=== PATIENT | female | born 1980 | race Caucasian/White ===

== ENCOUNTER 2018-10-16 22:28 | Emergency (ER) | payer BC ==
[~2018-10-16] VITALS: Ht 162.6 cm; Wt 109.1 kg
[~2018-10-16 22:28] MED LIST: LORTAB 5/500 501 TAB PO; NO HOME MEDICATIONS; PENICILLIN V500 MG PO
[2018-10-16 22:33] VITALS: TEMP 97.9
[2018-10-17] MEDS ORDERED: ZOFRAN ODT4 MG PO (01:03)
[2018-10-17 01:06] VITALS: BP 108/54; PULSE 84
== END 2018-10-17 01:15 | disposition home or self-care (01) ==
LOC: COL.ER 22:28
DX: T18.128A Food in esophagus causing other injury, initial encounter (principal); Z87.19 Personal history of other diseases of the digestive system; Z87.891 Personal history of nicotine dependence
CPT/HCPCS: J2704; J7030

== ENCOUNTER 2019-07-01 19:39 | Emergency (ER) | payer BC ==
[~2019-07-01] VITALS: Ht 162.6 cm; Wt 122.7 kg
[~2019-07-01 19:39] MED LIST changes: +ZOFRAN ODT4 MG PO
[2019-07-01 19:45] VITALS: BP 163/81; TEMP 97.7
[2019-07-01] MEDS ORDERED: NORCO 325 MG-51 TAB PO (20:07)
[2019-07-01] MEDS ORDERED: AMOXICILLIN 8751 TAB PO (20:07)
[2019-07-01 20:26] VITALS: PULSE 84
[2019-07-02] MEDS ORDERED: CLEOCIN HCL300 MG PO (21:53)
== END 2019-07-01 20:22 | disposition home or self-care (01) ==
LOC: COL.ER 19:39
DX: K02.9 Dental caries, unspecified (principal); K03.81 Cracked tooth; Z87.891 Personal history of nicotine dependence; Z88.1 Allergy status to other antibiotic agents

== ENCOUNTER 2019-07-02 20:42 | Emergency (ER) | payer BC ==
[~2019-07-02] VITALS: Ht 162.6 cm; Wt 118.2 kg
[~2019-07-02 20:42] MED LIST changes: +AMOXICILLIN 8751 TAB PO; +NORCO 325 MG-51 TAB PO
[2019-07-02 20:56] VITALS: BP 138/67; TEMP 98.4
[2019-07-02] MEDS ORDERED: CLEOCIN HCL300 MG PO (21:53)
[2019-07-02 22:07] VITALS: PULSE 89
== END 2019-07-02 22:08 | disposition home or self-care (01) ==
LOC: COL.ER 20:42
DX: K02.9 Dental caries, unspecified (principal); K04.7 Periapical abscess without sinus
CPT/HCPCS: J1170

== ENCOUNTER 2020-02-03 18:38 | Emergency (ER) | payer BC ==
[~2020-02-03] VITALS: Ht 162.6 cm; Wt 104.5 kg
[~2020-02-03 18:38] MED LIST changes: +CLEOCIN HCL300 MG PO; +FLOVENT 220MCG7.9 GM PO; +PRILOSEC 20MG20 MG PO
[2020-02-03 19:12] LABS: BASO # 0.1 (0.0-0.2); EOS # 0.6 (0.0-0.7); EOS % 6.2 % (0-4.0); GRAN # 5.1 (1.4-6.5); GRAN % 57.7 % (42.2-75.2); HEMATOCRIT 47.3 % (37.0-47.0); HEMOGLOBIN 15.4 g/dl (12.5-16.0); LYMPH # 2.4 (1.2-3.4); LYMPH % 27.4 % (20.0-51.0); MEAN CELL VOLUME 93 fl (80.0-100.0); MEAN CORPUSCULAR HEMOGLOBIN 30 pg (27.0-31.0); MEAN CORPUSCULAR HGB CONC 33 g/dl (33.0-37.0); MEAN PLATELET VOLUME 10.2 fl (7.4-10.4); MONO # 0.7 (0.1-0.6); MONO % 7.4 % (1.7-9.3); PLATELET COUNT 281 K/mm3 (130-400); REDCELL DISTRIBUTION WIDTH-CV 13.2 % (11.5-14.5)
[2020-02-03 19:24] LABS: BILIRUBIN,TOTAL 0.4 mg/dL (0.0-1.0); C-REACTIVE PROTEIN 0.7 mg/dL (0.0-0.9); CREATININE, serum 0.62 (0.52-1.25); POTASSIUM 4.1 mmol/L (3.4-5.0); TOTAL PROTEIN 7.3 gm/dL (6.4-8.2)
[2020-02-03 19:27] LABS: COLLECTION METHOD CLEAN CATCH
[2020-02-03 19:38] LABS: PH 6 (5-8); SQUAMOUS EPITHELIAL 0-2 /hpf; URINE APPEARANCE Clear; URINE BACTERIA Rare /hpf; URINE BILIRUBIN Negative (NEGATIVE); URINE BLOOD Negative (NEGATIVE); URINE COLOR Straw; URINE GLUCOSE Negative (NEGATIVE); URINE KETONE Negative (NEGATIVE); URINE LEUKOCYTE ESTERASE Negative (NEGATIVE); URINE NITRATE Negative (NEGATIVE); URINE PROTEIN(semi-quant) Negative (NEGATIVE); URINE RBC 0-2 /hpf; URINE UROBILINOGEN Negative (NEGATIVE)
[2020-02-03] MEDS ORDERED: PHENERGAN 25 TA25 MG PO (21:48)
[2020-02-03 22:15] VITALS: BP 101/84; PULSE 76; TEMP 97.6
== END 2020-02-03 22:27 | disposition home or self-care (01) ==
LOC: COL.ER 18:38
PROVIDERS: Nurse Practitioner
DX: R11.0 Nausea (principal); R10.30 Lower abdominal pain, unspecified; K20.0 Eosinophilic esophagitis; Z88.8 Allergy status to other drugs, medicaments and biological substances
CPT/HCPCS: J1885; J2270; J2405; J2550; J7030; Q9967

== ENCOUNTER 2021-01-23 03:29 | Emergency (ER) | payer BC ==
[~2021-01-23] VITALS: Ht 162.6 cm; Wt 115.5 kg
[~2021-01-23 03:29] MED LIST changes: +PHENERGAN 25 TA25 MG PO
[2021-01-23 03:37] VITALS: TEMP 98.1
[2021-01-23 04:18] VITALS: BP 131/77; PULSE 87
== END 2021-01-23 04:18 | disposition home or self-care (01) ==
LOC: COL.ER 03:29
DX: R11.0 Nausea (principal); J45.909 Unspecified asthma, uncomplicated; Z20.822 Contact with and (suspected) exposure to COVID-19; Z79.51 Long term (current) use of inhaled steroids

== ENCOUNTER 2021-10-30 03:06 | Emergency (ER) | payer BC ==
[~2021-10-30] VITALS: Ht 160 cm; Wt 118.2 kg
[2021-10-30 04:20] VITALS: BP 130/73; PULSE 94; TEMP 98.1
== END 2021-10-30 04:20 | disposition home or self-care (01) ==
LOC: COL.ER 03:06
DX: B34.9 Viral infection, unspecified (principal)

== ENCOUNTER → 2022-04-17 | Outpatient (CLI) | payer SELFPAY ==
[~2022-04-17] MED LIST changes: +BENTYL 20MG20 MG/TAB PO; +CARAFATE 1GM1 G PO; +ZOFRAN 4MG T4 MG/TAB PO
== END ==
LOC: COL.RAD 09:31
DX: K76.0 Fatty (change of) liver, not elsewhere classified (principal)

== ENCOUNTER 2022-11-29 19:35 | Emergency (ER) | payer SELFPAY ==
[~2022-11-29] VITALS: Ht 157.5 cm; Wt 88.6 kg
[2022-11-29 19:36] VITALS: TEMP 97.7
[2022-11-29 20:05] LABS: BASO # 0.1 K/mm3 (0.0-0.2); BASO % 0.6 % (0.0-2.0); EOS # 0.6 K/mm3 (0.0-0.7); EOS % 5.8 % (0.0-4.0); GRAN # 6.8 K/mm3 (1.4-6.5); HEMATOCRIT 45.8 % (37.0-47.0); HEMOGLOBIN 15.3 g/dl (12.5-16.0); LYMPH # 2.8 K/mm3 (1.2-3.4); LYMPH % 25.1 % (20.0-51.0); MEAN CELL VOLUME 94 fl (80.0-100.0); MEAN CORPUSCULAR HEMOGLOBIN 31 pg (27-31); MEAN CORPUSCULAR HGB CONC 33 g/dl (33.0-37.0); MEAN PLATELET VOLUME 10.2 fl (7.4-10.4); MONO # 0.7 K/mm3 (0.1-0.6); MONO % 6.2 % (1.7-9.3); PLATELET COUNT 246 K/mm3 (130-400); RED BLOOD COUNT 4.89 M/mm3 (4.10-5.30); REDCELL DISTRIBUTION WIDTH-CV 13.6 % (11.5-14.5)
[2022-11-29 20:17] LABS: COLLECTION METHOD CLEAN CATCH
[2022-11-29 20:19] LABS: ALANINE AMINOTRANSFERASE 20 U/L (0-55); ALBUMIN 3.6 gm/dL (3.5-5.0); ALKALINE PHOSPHATASE 88 U/L (40-150); ANION GAP 12 mmol/L (7-16); AST,SGOT 10 U/L (5-34); BILIRUBIN,TOTAL 0.4 mg/dL (0.2-1.2); BLOOD UREA NITROGEN 13 mg/dL (7-19); CALCIUM 8.7 mg/dL (8.4-10.2); CARBON DIOXIDE 18 mmol/L (22-29); CHLORIDE 110 mmol/L (98-107); CREATININE, serum 0.72 mg/dL (0.57-1.11); GLUCOSE 134 mg/dL (70-99); POTASSIUM 3.6 mmol/L (3.5-4.5); SODIUM 140 mmol/L (136-145)
[2022-11-29 20:20] LABS: ACETAMINOPHEN < 1.0 ug/mL (10-30); ALCOHOL(ethanol),MEDICAL < 10 mg/dL (0-10); SALICYLATE < 5.0 mg/dL (15.0-30.0)
[2022-11-29 20:29] LABS: MUCOUS Present (NOT PRESENT); SQUAMOUS EPITHELIAL 0-2 /hpf (0-10); URINE BACTERIA None Seen /hpf (NONE SEEN); URINE RBC 0-2 /hpf (0-2)
[2022-11-29 20:32] LABS: URINE APPEARANCE Hazy (CLEAR/HAZY); URINE COLOR Yellow (YELLOW)
[2022-11-29 20:33] LABS: URINE BLOOD Negative (NEGATIVE); URINE GLUCOSE Negative (NEGATIVE); URINE KETONE Negative (NEGATIVE); URINE NITRATE Negative (NEGATIVE); URINE PROTEIN(semi-quant) 2+ (NEGATIVE); URINE UROBILINOGEN 0.2 (NEGATIVE)
[2022-11-29 20:35] LABS: TRICYCLIC ANTIDEPRESS URINE NEGATIVE
[2022-11-29 20:55] VITALS: BP 118/67; PULSE 68
== END 2022-11-29 21:02 | disposition home or self-care (01) ==
LOC: COL.ER 19:35
PROVIDERS: Family Medicine
DX: T40.2X2A Poisoning by other opioids, intentional self-harm, initial encounter (principal); R40.4 Transient alteration of awareness; I45.2 Bifascicular block; F17.210 Nicotine dependence, cigarettes, uncomplicated
CPT/HCPCS: J2405

== ENCOUNTER 2023-10-23 08:36 | Emergency (ER) | payer OTHER ==
[~2023-10-23] VITALS: Ht 162.6 cm; Wt 100.0 kg
[~2023-10-23 08:36] MED LIST changes: +FLEXERIL 1010 MG/TAB PO; +PREDNISONE20 MG PO; +ZITHROMAX Z PA250 MG PO
[2023-10-23 08:43] VITALS: BP 126/72; TEMP 98.2
[2023-10-23] MEDS ORDERED: AMOXICILLIN 8751 TAB PO (09:50)
[2023-10-23] MEDS ORDERED: NORCO 325 MG-51 TAB PO (09:50)
[2023-10-23 10:00] VITALS: PULSE 83
== END 2023-10-23 10:03 | disposition home or self-care (01) ==
LOC: COL.ER 08:36
DX: S02.5XXA Fracture of tooth (traumatic), initial encounter for closed fracture (principal); K04.7 Periapical abscess without sinus; K02.9 Dental caries, unspecified; F17.210 Nicotine dependence, cigarettes, uncomplicated; Z88.6 Allergy status to analgesic agent; X58.XXXA Exposure to other specified factors, initial encounter

== ENCOUNTER 2024-04-03 11:35 | Emergency (ER) | payer OTHER ==
[~2024-04-03] VITALS: Ht 162.6 cm; Wt 111.8 kg
[2024-04-03 11:46] VITALS: BP 151/86; TEMP 98.4
[2024-04-03 12:18] VITALS: PULSE 88
== END 2024-04-03 12:18 | disposition home or self-care (01) ==
LOC: COL.ER 11:35
DX: M72.2 Plantar fascial fibromatosis (principal); F17.200 Nicotine dependence, unspecified, uncomplicated